=== PATIENT | female | born 1950 | race Caucasian/White ===

== ENCOUNTER 2018-05-01 07:42 | Inpatient (IN) | payer MEDICARE, BC ==
[~2018-05-01] VITALS: Ht 167.6 cm; Wt 89.1 kg
[~2018-05-01 07:42] MED LIST: ACETAMINOPHEN 1000 MG/ISO-OSM 100 ML IV ONE; ALLO300 PO; ASCO500 PO; ATOR10TA84 PO; BUPIVACAINE HCL/PF 0.5% 30 ML VIAL ONE; BUPIVACAINE LIPOSOME/PF 1.3%-13.3MG/ML SUSPENSION 20 ML VIAL INJ ONE; CETI10TA59 PO; DEXL60CA3 PO; GABA-529 PO; HYDR200T4 PO; KDUR20 PO; LEVO100 PO; MULT-1251 PO; PRED1 PO; SERT100T12 PO; TOLT2TAB2 PO; TRANEXAMIC ACID 1,000 MG in DEXTROSE 5%-WATER 50 ML IV ONE; TRIA1CAP2 PO
[2018-05-01] MEDS ORDERED: RINGERS SOLUTION,LACTATED 1,000 ML IV ONE ×2 (08:11→08:30)
[2018-05-01] MEDS ORDERED: SODIUM CHLORIDE 0.9% 10 ML ONE (08:27)
[2018-05-01] MEDS ORDERED: SODIUM CL IRRIG SOLN BAG 3,000 ML IRRIG ONE (08:27)
[2018-05-01] MEDS ORDERED: BACITRACIN 50,000 UNITS/VIAL ONE (08:28)
[2018-05-01] MEDS ORDERED: SODIUM CHLORIDE 0.9% 100 ML ONE (10:17)
[2018-05-01] MEDS ORDERED: FentaNYL CITRATE-PF 100 MCG/2 ML VIAL IVP PRN (10:30)
[2018-05-01] MEDS ORDERED: MEPERIDINE-PF 25 MG/ML VIAL IVP PRN (10:30)
[2018-05-01] MEDS ORDERED: HYDROmorphone 2 MG/ML SYRINGE IVP PRN ×2 (10:30→10:45)
[2018-05-01] MEDS ORDERED: ZOLPIDEM TARTRATE 5 MG TABLET PO PRN (10:45)
[2018-05-01] MEDS ORDERED: DEXTROSE 5%-LACTATED RINGERS 1,000 ML IV SCH (11:36)
[2018-05-01] MEDS ORDERED: MAG HYDROX/AL HYDROX/SIMETH 30 ML SUSP UDCUP PO PRN (11:45)
[2018-05-01] MEDS ORDERED: DiphenhydrAMINE HCL 50 MG/ML VIAL IVP PRN (11:45)
[2018-05-01] MEDS ORDERED: ONDANSETRON HCL 4 MG/2 ML VIAL IVP PRN (11:45)
[2018-05-01] MEDS ORDERED: BENZOCAINE/MENTHOL LOZENGE PO PRN (11:45)
[2018-05-01] MEDS ORDERED: ZOLPIDEM TARTRATE 10 MG TABLET PO PRN (11:45)
[2018-05-01] MEDS ORDERED: BISACODYL 10 MG RECTAL RECTAL SUPPOSITORY PR PRN (11:45)
[2018-05-01 13:04] VITALS: BP 144/74
[2018-05-01 16:17] VITALS: BP 143/92
[2018-05-01] MEDS ORDERED: PNEUMOCOCCAL VACCINE POLYVALENT 0.5 ML VIAL [PPSV23] IM ONE (17:00)
[2018-05-01] MEDS: CeFAZolin 1 GM/DEXTROSE 50 ML IV SCH (17:30)
[2018-05-01] MEDS: ACETAMINOPHEN 1000 MG/ISO-OSM 100 ML IV SCH (18:12)
[2018-05-01 19:56] VITALS: BP 128/72
[2018-05-01] MEDS: DOCUSATE SODIUM 100 MG CAPSULE PO SCH (22:02)
[2018-05-01] MEDS: FAMOTIDINE 20 MG TABLET PO SCH (22:02)
[2018-05-01] MEDS: ATORVASTATIN CALCIUM 10 MG TABLET PO SCH (22:03)
[2018-05-01] MEDS: SERTRALINE HCL 100 MG TABLET PO SCH (22:03)
[2018-05-01] MEDS: GABAPENTIN 100 MG CAPSULE PO SCH (22:05)
[2018-05-01 23:54] VITALS: BP 137/75
[2018-05-02] MEDS: ACETAMINOPHEN 1000 MG/ISO-OSM 100 ML IV SCH ×2 (01:58→12:55)
[2018-05-02] MEDS: CeFAZolin 1 GM/DEXTROSE 50 ML IV SCH (01:58)
[2018-05-02 05:16] VITALS: BP 131/73
[2018-05-02] MEDS: LEVOTHYROXINE SODIUM 100 MCG TABLET PO SCH (06:08)
[2018-05-02 06:13] LABS: BASOPHILS % (AUTO) 0.1 % (0.0-2.0); EOSINOPHILS % (AUTO) 0.1 % (1.0-6.0); HEMATOCRIT 31.2 % (36-46); HEMOGLOBIN 10.3 g/dL (12.0-16.0); LYMPHOCYTES # (AUTO) 1.4 K/uL (1.0-4.8); LYMPHOCYTES % (AUTO) 11.6 % (22.0-44.0); MEAN CORPUSCULAR HEMOGLOBIN 29.4 pg (26.0-34.0); MEAN CORPUSCULAR VOLUME 89 fL (80-100); MONOCYTES # (AUTO) 1.2 K/uL (0.1-1.0); MONOCYTES % (AUTO) 9.6 % (2.0-9.0); NEUTROPHILS # (AUTO) 9.5 K/uL (1.8-7.7); NEUTROPHILS % (AUTO) 78.6 % (40.0-70.0); PLATELET COUNT (AUTO) 209 K/uL (150-450); RED CELL DISTRIBUTION WIDTH 13.7 % (11.5-14.5)
[2018-05-02] MEDS ORDERED: FentaNYL CITRATE-PF 100 MCG/2 ML VIAL IVP ONE (06:16)
[2018-05-02] MEDS ORDERED: MIDAZOLAM HCL 2 MG/2 ML VIAL IVP ONE (06:16)
[2018-05-02 06:29] LABS: CALCIUM, TOTAL 8.6 mg/dL (8.8-10.5); CREATININE 0.97 mg/dL (0.60-1.30); POTASSIUM 3.5 mmol/L (3.5-5.1)
[2018-05-02] MEDS: OXYGEN THERAPY IH SCH ×2 (08:00→20:00)
[2018-05-02 08:29] VITALS: BP 134/72
[2018-05-02] MEDS: HYDROCODONE/ACETAMINOPHEN 5-325 MG TABLET PO PRN ×2 (08:31→18:10)
[2018-05-02] MEDS: FAMOTIDINE 20 MG TABLET PO SCH ×2 (08:31→19:55)
[2018-05-02] MEDS: DOCUSATE SODIUM 100 MG CAPSULE PO SCH ×2 (08:32→19:55)
[2018-05-02] MEDS ORDERED: RIVAROXABAN 10 MG TABLET PO SCH (10:00)
[2018-05-02 12:06] VITALS: BP 110/68
[2018-05-02 16:03] VITALS: BP 111/62
[2018-05-02] MEDS: RIVAROXABAN 10 MG TABLET PO SCH (18:09)
[2018-05-02 19:27] VITALS: BP 125/67
[2018-05-02] MEDS: HYDROXYCHLOROQUINE SULFATE 200 MG TABLET PO SCH (19:56)
[2018-05-02] MEDS: CYCLOBENZAPRINE HCL 10 MG TABLET PO PRN (19:59)
[2018-05-02 23:33] VITALS: BP 125/65
[2018-05-03] MEDS: HYDROCODONE/ACETAMINOPHEN 5-325 MG TABLET PO PRN ×2 (00:24→08:52)
[2018-05-03 04:33] VITALS: BP 132/85
[2018-05-03 06:09] LABS: BASOPHILS % (AUTO) 0.5 % (0.0-2.0); EOSINOPHILS % (AUTO) 1.7 % (1.0-6.0); HEMATOCRIT 30.2 % (36-46); HEMOGLOBIN 10.2 g/dL (12.0-16.0); LYMPHOCYTES # (AUTO) 1.1 K/uL (1.0-4.8); LYMPHOCYTES % (AUTO) 13.9 % (22.0-44.0); MEAN CORPUSCULAR HEMOGLOBIN 30.1 pg (26.0-34.0); MEAN CORPUSCULAR HGB CONC 33.6 G/dL (31.0-37.0); MEAN CORPUSCULAR VOLUME 89 fL (80-100); MONOCYTES # (AUTO) 0.9 K/uL (0.1-1.0); NEUTROPHILS # (AUTO) 5.7 K/uL (1.8-7.7); NEUTROPHILS % (AUTO) 72.9 % (40.0-70.0); PLATELET COUNT (AUTO) 187 K/uL (150-450); RED BLOOD CELL COUNT(AUTO) 3.38 MIL/uL (4.00-5.20); RED CELL DISTRIBUTION WIDTH 13.8 % (11.5-14.5)
[2018-05-03 06:12] LABS: ANION GAP 8 mmol/L (8-16); CALCIUM, TOTAL 8.6 mg/dL (8.8-10.5); CARBON DIOXIDE 30 mmol/L (22-29); CHLORIDE 102 mmol/L (98-107); CREATININE 0.85 mg/dL (0.60-1.30); GLOMERULAR FILTR. RATE CALC > 60 mL/min (>60); GLUCOSE,RANDOM 103 mg/dL (70-110); POTASSIUM 3.3 mmol/L (3.5-5.1); SODIUM SERUM 140 mmol/L (136-145); UREA NITROGEN, BLOOD 14 mg/dL (7-18)
[2018-05-03] MEDS ORDERED: [UNRECOGNIZED DRUG - OTHER] PO SCH (06:30)
[2018-05-03] MEDS: LEVOTHYROXINE SODIUM 100 MCG TABLET PO SCH (06:47)
[2018-05-03 07:25] VITALS: BP 124/88
[2018-05-03] MEDS: OXYGEN THERAPY IH SCH (08:00)
[2018-05-03] MEDS: PANTOPRAZOLE SODIUM 40 MG DR TABLET PO SCH (08:50)
[2018-05-03] MEDS: MULTIVITAMINS WITH MINERALS, THERAPEUTIC TABLET PO SCH (08:50)
[2018-05-03] MEDS: FAMOTIDINE 20 MG TABLET PO SCH ×2 (08:50→20:23)
[2018-05-03] MEDS: ATORVASTATIN CALCIUM 10 MG TABLET PO SCH (08:50)
[2018-05-03] MEDS: DOCUSATE SODIUM 100 MG CAPSULE PO SCH ×2 (08:51→20:23)
[2018-05-03] MEDS: CYCLOBENZAPRINE HCL 10 MG TABLET PO PRN (08:51)
[2018-05-03] MEDS: ASCORBIC ACID 500 MG TABLET PO SCH (08:52)
[2018-05-03] MEDS: HYDROXYCHLOROQUINE SULFATE 200 MG TABLET PO SCH ×2 (08:55→20:23)
[2018-05-03] MEDS: GABAPENTIN 100 MG CAPSULE PO SCH (08:56)
[2018-05-03] MEDS: TOLTERODINE TARTRATE 2 MG ER CAPSULE PO SCH (08:56)
[2018-05-03] MEDS: SERTRALINE HCL 100 MG TABLET PO SCH (08:57)
[2018-05-03] MEDS: ALLOPURINOL 300 MG TABLET PO SCH (08:58)
[2018-05-03] MEDS ORDERED: TRIAMTERENE/HCTZ 37.5-25 MG CAPSULE PO SCH (09:00)
[2018-05-03 11:40] VITALS: BP 124/67
[2018-05-03 15:40] VITALS: BP 144/80
[2018-05-03] MEDS: POTASSIUM CHLORIDE 20 MEQ ER TABLET PO SCH (17:47)
[2018-05-03] MEDS: RIVAROXABAN 10 MG TABLET PO SCH (18:16)
[2018-05-03 19:38] VITALS: BP 134/88
[2018-05-03 23:17] VITALS: BP 150/71
[2018-05-04] MEDS: OXYGEN THERAPY IH SCH (00:39)
[2018-05-04 04:20] VITALS: BP 142/73
[2018-05-04 05:46] LABS: BASOPHILS % (AUTO) 0.6 % (0.0-2.0); EOSINOPHILS % (AUTO) 0.5 % (1.0-6.0); HEMATOCRIT 32.7 % (36-46); HEMOGLOBIN 10.7 g/dL (12.0-16.0); LYMPHOCYTES # (AUTO) 1.1 K/uL (1.0-4.8); LYMPHOCYTES % (AUTO) 12.5 % (22.0-44.0); MEAN CORPUSCULAR HEMOGLOBIN 29.4 pg (26.0-34.0); MEAN CORPUSCULAR HGB CONC 32.9 G/dL (31.0-37.0); MEAN CORPUSCULAR VOLUME 90 fL (80-100); MONOCYTES # (AUTO) 1.1 K/uL (0.1-1.0); MONOCYTES % (AUTO) 12.7 % (2.0-9.0); NEUTROPHILS # (AUTO) 6.2 K/uL (1.8-7.7); NEUTROPHILS % (AUTO) 73.7 % (40.0-70.0); PLATELET COUNT (AUTO) 197 K/uL (150-450); RED BLOOD CELL COUNT(AUTO) 3.65 MIL/uL (4.00-5.20); RED CELL DISTRIBUTION WIDTH 13.6 % (11.5-14.5)
[2018-05-04] MEDS: LEVOTHYROXINE SODIUM 100 MCG TABLET PO SCH (06:07)
[2018-05-04 07:15] VITALS: BP 128/63
[2018-05-04] MEDS: ASCORBIC ACID 500 MG TABLET PO SCH (08:30)
[2018-05-04] MEDS: DOCUSATE SODIUM 100 MG CAPSULE PO SCH (08:31)
[2018-05-04] MEDS: MULTIVITAMINS WITH MINERALS, THERAPEUTIC TABLET PO SCH (08:31)
[2018-05-04] MEDS: GABAPENTIN 100 MG CAPSULE PO SCH (08:31)
[2018-05-04] MEDS: ALLOPURINOL 300 MG TABLET PO SCH (08:31)
[2018-05-04] MEDS: PANTOPRAZOLE SODIUM 40 MG DR TABLET PO SCH (08:31)
[2018-05-04] MEDS: FAMOTIDINE 20 MG TABLET PO SCH (08:32)
[2018-05-04] MEDS: POTASSIUM CHLORIDE 20 MEQ ER TABLET PO SCH (08:32)
[2018-05-04] MEDS: ATORVASTATIN CALCIUM 10 MG TABLET PO SCH (08:32)
[2018-05-04] MEDS: SERTRALINE HCL 100 MG TABLET PO SCH (08:33)
[2018-05-04] MEDS: TOLTERODINE TARTRATE 2 MG ER CAPSULE PO SCH (08:33)
[2018-05-04] MEDS: HYDROXYCHLOROQUINE SULFATE 200 MG TABLET PO SCH (08:33)
[2018-05-04] MEDS: HYDROCODONE/ACETAMINOPHEN 5-325 MG TABLET PO PRN (10:43)
[2018-05-04 11:32] VITALS: BP 124/64
== END 2018-05-04 13:40 | DRG 470 ==
LOC: 4E 07:42 → 6N 05-03 16:15
PROVIDERS: ADMIT Orthopaedic Surgery; ATTEND Orthopaedic Surgery
PROC: 3E0234Z Introduction of Serum, Toxoid and Vaccine into Muscle, Percutaneous Approach (ICD-10-PCS; 2018-05-01)
PROC: 0SRD0J9 Replacement of Left Knee Joint with Synthetic Substitute, Cemented, Open Approach (ICD-10-PCS; principal; 2018-05-01 10:00)
DX: M17.12 Unilateral primary osteoarthritis, left knee (principal); M06.9 Rheumatoid arthritis, unspecified; E87.6 Hypokalemia; E03.9 Hypothyroidism, unspecified; E66.9 Obesity, unspecified; M10.9 Gout, unspecified; E78.00 Pure hypercholesterolemia, unspecified; Z90.710 Acquired absence of both cervix and uterus; Z68.31 Body mass index [BMI] 31.0-31.9, adult; Z88.0 Allergy status to penicillin; Z23 Encounter for immunization; I12.9 Hypertensive chronic kidney disease with stage 1 through stage 4 chronic kidney disease, or unspecified chronic kidney disease; N18.9 Chronic kidney disease, unspecified; G89.29 Other chronic pain
CPT/HCPCS: 87081; 88300; 90732; 97110; 97116; 97161; 97166; 97530; 97535; C9290; G0238; G0378; J0131; J0690; J1170; J2250; J2405; J3010; J3490; J7050; J7060; J7120

== ENCOUNTER 2022-05-09 06:32 | Day surgery (SDC) | payer MEDICARE, BC ==
[~2022-05-09] VITALS: Ht 167.6 cm; Wt 68.2 kg
[~2022-05-09 06:32] MED LIST changes: -ACETAMINOPHEN 1000 MG/ISO-OSM 100 ML IV ONE; +ALLO-45 PO; -ALLO300 PO; +ATOR10TA PO; -ATOR10TA84 PO; -BUPIVACAINE HCL/PF 0.5% 30 ML VIAL ONE; -BUPIVACAINE LIPOSOME/PF 1.3%-13.3MG/ML SUSPENSION 20 ML VIAL INJ ONE; +CETI-450 PO; -CETI10TA59 PO; +GABA-1216 PO; -GABA-529 PO; +HYDR200T38 PO; -HYDR200T4 PO; -KDUR20 PO; +POTA-206 PO; +SERT-162 PO; -SERT100T12 PO; +SODIUM CHLORIDE 0.9% 1,000 ML IV ONE; -TRANEXAMIC ACID 1,000 MG in DEXTROSE 5%-WATER 50 ML IV ONE
[2022-05-09] MEDS ORDERED: LIDOCAINE/PF 2% 5 ML VIAL IM ONE (06:33)
[2022-05-09] MEDS ORDERED: PROPOFOL 1% 20 ML VIAL IVP ONE (06:33)
[2022-05-09] MEDS ORDERED: SODIUM CHLORIDE 0.9% 1,000 ML ONE (07:01)
[2022-05-09 07:03] LABS: COVID AG,FIA SOURCE NASAL SWAB
== END 2022-05-09 10:50 | disposition home or self-care (01) ==
LOC: SURGERY 06:32
PROVIDERS: ATTEND Internal Medicine Gastroenterology
DX: K64.0 First degree hemorrhoids (principal); Z20.822 Contact with and (suspected) exposure to COVID-19; I10 Essential (primary) hypertension; Z98.890 Other specified postprocedural states; Z90.710 Acquired absence of both cervix and uterus; Z96.652 Presence of left artificial knee joint; N18.30 Chronic kidney disease, stage 3 unspecified; Z98.41 Cataract extraction status, right eye; Z88.2 Allergy status to sulfonamides; Z98.42 Cataract extraction status, left eye; Z86.010 Personal history of colon polyps
CPT/HCPCS: 45378; 87426; 93005; J2704; J3490; J7030; C9803